=== PATIENT | female | born 1955 | race Caucasian/White ===

== ENCOUNTER 2016-11-18 03:14 | Emergency (ER) | payer OTHER ==
[~2016-11-18] VITALS: Ht 152.4 cm; Wt 55.4 kg
[~2016-11-18 03:14] MED LIST: ADVIL MIGRAINE200 MG PO; BACTRIM,SEPT1 TABLET PO; BACTROBAN OINTM22 GM TP; Bactrim,Septra DS 80 PO; CLONAZEPAM2 MG PO; CONCERTA27 MG PO; ERYTHROMYCIN O3.5 GM LEFT EYE; Flagyl PO; HYDROCHLOROTH12.5 M3 PO; HYDROCHLOROTHIA25 MG PO; HYDROCODON-ACE1 EAC7 PO; HYDROCODONE PO; INDOCIN25 MG PO; KLONOPIN1 M1 PO; LORTAB 5-325 M1 EACH PO; NICODERM CQ1 EAC2 TD; NICOTINE PATCH1 EAC1 TD; NORCO 5/3251 TABLET PO; PERCOCET 5/31 TABLET PO; RITALIN20 MG PO; SOMA250 MG PO; SSD25GM TP; THERAGRAN1 TABLET PO; TOBRAMYCIN SULFA5 ML RIGHT EYE; TRAMADOL HCL50 MG PO; XANAX XR2 MG PO; ZANTAC150 MG PO; ZOLOFT100 MG PO; ZYVOX600 MG PO; Zoloft PO
[2016-11-18] MEDS ORDERED: EPIPEN ADU0.3 MG/0.3 IM (05:02)
[2016-11-18 05:10] VITALS: BP 160/84
== END 2016-11-18 05:15 | disposition home or self-care (01) ==
LOC: EME → EDBD 03:14 → EME 03:14
DX: T78.1XXA Other adverse food reactions, not elsewhere classified, initial encounter (principal)
CPT/HCPCS: 93005; 99281; 99285; J2930; S0028

== ENCOUNTER → 2017-11-06 | Outpatient (CLI) | payer MEDICARE, OTHER ==
[~2017-11-06] MED LIST changes: +EPIPEN ADU0.3 MG/0.3 IM
== END | disposition home or self-care (01) ==
LOC: CDC 13:30
DX: Z01.810 Encounter for preprocedural cardiovascular examination (principal); R39.15 Urgency of urination; R31.29 Other microscopic hematuria; I45.10 Unspecified right bundle-branch block
CPT/HCPCS: 93000

== ENCOUNTER 2018-02-13 21:58 | Inpatient (IN) | payer OTHER ==
[~2018-02-13] VITALS: Ht 154.9 cm; Wt 55.4 kg
[~2018-02-13 21:58] MED LIST changes: -CLONAZEPAM2 MG PO; +KLONOPIN1 MG PO
[2018-02-13 22:26] LABS: HEMATOCRIT 36.1 % (36.0-46.0); HEMOGLOBIN 12.1 G/DL (11.9-15.5); MCHC 33.5 G/DL (30.0-36.0); MCV 89.4 FL (83-99); NRBC (%) 0.3 /100 WBC (0-0); PLATELET COUNT 231 K/uL (156-360); RBC DIS.WIDTH-CV 14.4 % (11.8-14.6); RBC DIS.WIDTH-SD 46.7 % (39-53); RED BLOOD COUNT 4.04 M/uL (3.80-5.20); WHITE BLOOD COUNT 7.3 K/uL (4.1-10.2)
[2018-02-13 22:37] LABS: ALBUMIN 3.7 g/dL (3.2-4.8)
[2018-02-13 22:38] LABS: CHLORIDE 108 mEq/L (99-109); POTASSIUM 3.8 mEq/L (3.7-5.4); SODIUM 142 mEq/L (136-147)
[2018-02-13 22:40] LABS: GLUCOSE 138 mg/dL (70-99); TOTAL PROTEIN 6.3 g/dL (6.4-8.3)
[2018-02-13 22:42] LABS: TOTAL BILIRUBIN 0.3 mg/dL (0.0-1.0)
[2018-02-13 22:43] LABS: SERUM ETHYL ALCOHOL < 10 mg/dL
[2018-02-13 22:44] LABS: ALKALINE PHOSPHATASE 94 IU/L (3-129); CREATININE 1.3 mg/dL (0.6-1.3); GFR ESTIMATE (CALCULATED) 44 mL/min/
[2018-02-13 22:45] LABS: AST (GOT) 57 IU/L (2-34)
[2018-02-13 22:46] LABS: UREA NITROGEN (BUN) 18 mg/dL (9-23)
[2018-02-13 22:47] LABS: ALT (GPT) 59 IU/L (3-49); SALICYLATE < 5.0 MG/DL (15-30); TROP-I INTERPRETATION NEGATIVE; TROPONIN-I 0.03 ng/mL (0.0-0.30)
[2018-02-13 22:48] LABS: ACETAMINOPHEN (TYLENOL) < 10 mcg/mL (10-30); CREATINE KINASE 166 IU/L (1-294); LIPASE 24 U/L (1.0-51.0)
[2018-02-14] VITALS (21 sets, daily range): BP systolic 102–135; BP diastolic 47–74
[2018-02-14 00:57] LABS: APPEARANCE SL.HAZY ((CLEAR)); BILIRUBIN NEGATIVE; BLOOD NEGATIVE; COLOR YELLOW ((YELLOW)); GLUCOSE (STRIP) NEGATIVE; KETONES NEGATIVE; LEUKOCYTES NEGATIVE; NITRITE NEGATIVE; PROTEIN (STRIP) 30; SPECIFIC GRAVITY 1.024 (1.000-1.030); UROBILINOGEN 0.2 MG/DL (0.2-1.0)
[2018-02-14 01:00] LABS: BACTERIA NONE SEEN /HPF; EPITHELIAL CELLS RARE /HPF; HYALINE CASTS 0-5 /LPF; MUCUS TRACE /LPF; RED BLOOD CELLS 0-5 /HPF (0-5); UCUL ADDED? YES
[2018-02-14 01:14] LABS: AMPHETAMINE NEGATIVE (500 ng/mL); BARBITURATES NEGATIVE (200 ng/mL); BENZODIAZEPINES PRESUMPTIVE POSITIVE (150 ng/mL); BUPRENORPHINE NEGATIVE (10 ng/mL); COCAINE NEGATIVE (150 ng/mL); METHADONE NEGATIVE (200 ng/mL); METHAMPHETAMINE NEGATIVE (500 ng/mL); OPIATES (MORPHINE) NEGATIVE (100 ng/mL); OXYCODONE NEGATIVE (100 ng/mL); PHENCYCLIDINE NEGATIVE (25 ng/mL); PROPOXYPHENE NEGATIVE (300 ng/mL); THC CANNABINOIDS PRESUMPTIVE POSITIVE (50 ng/mL); TRICYCLIC ANTIDEPRESSANTS NEGATIVE (300 ng/mL)
[2018-02-14] MEDS ORDERED: NICODERM CQ1 EAC2 TD (01:17)
[2018-02-14] MEDS ORDERED: SINGULAIR10 MG PO (01:18)
[2018-02-14] MEDS ORDERED: LYRICA100 MG PO (01:18)
[2018-02-14] MEDS ORDERED: CHLORZOXAZONE500 MG PO (01:18)
[2018-02-14] MEDS ORDERED: ATORVASTATIN CA10 MG PO (01:18)
[2018-02-14 02:59] LABS: BENZODIAZEPINES, URINE SCREEN POSITIVE (200 ng/mL)
[2018-02-14 05:30] LABS: TROP-I INTERPRETATION POSITIVE
[2018-02-14 05:31] LABS: TROPONIN-I 0.64 ng/mL (0.0-0.30)
[2018-02-14 09:26] LABS: TROP-I INTERPRETATION POSITIVE; TROPONIN-I 0.79 ng/mL (0.0-0.30)
[2018-02-14 20:25] LABS: TROP-I INTERPRETATION INDETERMINATE; TROPONIN-I 0.35 ng/mL (0.0-0.30)
[2018-02-15] VITALS (14 sets, daily range): BP systolic 109–155; BP diastolic 54–84
[2018-02-15 05:36] LABS: HEMATOCRIT 38.6 % (36.0-46.0); HEMOGLOBIN 12.7 G/DL (11.9-15.5); MCH 29.1 PG (29.0-34.0); MCHC 32.9 G/DL (30.0-36.0); MCV 88.3 FL (83-99); PLATELET COUNT 238 K/uL (156-360); RBC DIS.WIDTH-CV 13.9 % (11.8-14.6); RBC DIS.WIDTH-SD 45.1 % (39-53); RED BLOOD COUNT 4.37 M/uL (3.80-5.20); WHITE BLOOD COUNT 9.9 K/uL (4.1-10.2)
[2018-02-15 06:18] LABS: CHLORIDE 108 MEQ/L (99-109); SODIUM 139 MEQ/L (136-147); UREA NITROGEN (BUN) 14 mg/dL (9-23)
[2018-02-15 06:24] LABS: CREATININE 0.8 MG/DL (0.6-1.3); GFR ESTIMATE (CALCULATED) > 59 mL/min/; GLUCOSE 98 mg/dL (70-99); POTASSIUM 4.6 MEQ/L (3.7-5.4)
[2018-02-15 07:10] LABS: TROP-I INTERPRETATION NEGATIVE; TROPONIN-I 0.22 ng/mL (0.0-0.30)
[2018-02-16 03:44] VITALS: BP 104/58
[2018-02-16 08:40] VITALS: BP 132/66
[2018-02-16 12:22] VITALS: BP 146/72
[2018-02-16 16:15] VITALS: BP 123/63
[2018-02-16 19:45] VITALS: BP 122/61
[2018-02-16 23:24] VITALS: BP 132/66
[2018-02-17 03:27] VITALS: BP 123/58
[2018-02-17 08:02] VITALS: BP 144/68
[2018-02-17 12:00] VITALS: BP 131/73
== END 2018-02-17 14:41 | disposition home or self-care (01) | DRG 917 ==
LOC: EME → EDBD 21:58 → EDOF 02-14 01:50 → 4WEST 02-14 01:50 → ENRESERV 02-14 01:51 → 4WEST 02-14 03:03 → ENRESERV 02-15 12:35 → 4EAST 02-15 15:22 → ENRESERV 02-17 01:51 → 5SOUTH 02-17 03:04 → ENPENDDIS 02-17 13:27 → 5SOUTH 02-17 14:41
PROVIDERS: Emergency Medicine; Internal Medicine Critical Care Medicine; Surgery
DX: T40.1X1A Poisoning by heroin, accidental (unintentional), initial encounter (principal); T37.2X Poisoning by, adverse effect of and underdosing of antimalarials and drugs acting on other blood protozoa; I46.8 Cardiac arrest due to other underlying condition; N17.9 Acute kidney failure, unspecified; R00.1 Bradycardia, unspecified; R53.83 Other fatigue; I45.10 Unspecified right bundle-branch block; R74.8 Abnormal levels of other serum enzymes; R74.0 Nonspecific elevation of levels of transaminase and lactic acid dehydrogenase [LDH]; F11.10 Opioid abuse, uncomplicated; F19.10 Other psychoactive substance abuse, uncomplicated; E86.0 Dehydration; I10 Essential (primary) hypertension; R10.9 Unspecified abdominal pain; M79.7 Fibromyalgia; G89.4 Chronic pain syndrome; E78.5 Hyperlipidemia, unspecified; D86.9 Sarcoidosis, unspecified; J44.9 Chronic obstructive pulmonary disease, unspecified; F90.9 Attention-deficit hyperactivity disorder, unspecified type; F31.9 Bipolar disorder, unspecified; F41.9 Anxiety disorder, unspecified; F17.200 Nicotine dependence, unspecified, uncomplicated; Z71.6 Tobacco abuse counseling; Z82.49 Family history of ischemic heart disease and other diseases of the circulatory system
CPT/HCPCS: 71045; 80048; 80053; 81003; 82550; 83690; 84484; 84999; 85027; 87086; 87641; 93005; 93306; 94799; 99281; 99285; G0480; J1644; J1885; J2765; J7030

== ENCOUNTER 2018-02-26 20:49 | Emergency (ER) | payer OTHER ==
[~2018-02-26] VITALS: Ht 154.9 cm; Wt 55.1 kg
[~2018-02-26 20:49] MED LIST changes: +ATORVASTATIN CA10 MG PO; +CHLORZOXAZONE500 MG PO; +LYRICA100 MG PO; +SINGULAIR10 MG PO
[2018-02-26 22:14] LABS: BASOPHIL (%) 0.7 % (0-1); BASOPHIL COUNT 0.1 K/uL (0-0.1); EOSINOPHIL (%) 3.5 % (0-5); EOSINOPHIL COUNT 0.3 K/uL (0-0.3); HEMATOCRIT 34.4 % (36.0-46.0); HEMOGLOBIN 11.8 G/DL (11.9-15.5); IMMATURE GRANULOCYTE (%) 0.2 % (0.0-0.7); LYMPHOCYTE (%) 26.6 % (15-42); LYMPHOCYTE COUNT 2.3 K/uL (1.0-2.8); MCH 29.8 PG (29.0-34.0); MCHC 34.3 G/DL (30.0-36.0); MCV 86.9 FL (83-99); MONOCYTE (%) 7.7 % (3-12); MONOCYTE COUNT 0.7 K/uL (0-0.8); NEUTROPHIL (%) 61.3 % (45-76); NEUTROPHIL COUNT 5.3 K/uL (1.8-6.4); PLATELET COUNT 273 K/uL (156-360); RBC DIS.WIDTH-CV 13.7 % (11.8-14.6); RBC DIS.WIDTH-SD 43.2 % (39-53); RED BLOOD COUNT 3.96 M/uL (3.80-5.20); WHITE BLOOD COUNT 8.6 K/uL (4.1-10.2)
[2018-02-26 22:27] LABS: CHLORIDE 111 mEq/L (99-109); POTASSIUM 3.4 mEq/L (3.7-5.4); SODIUM 143 mEq/L (136-147)
[2018-02-26 22:29] LABS: GLUCOSE 87 mg/dL (70-99)
[2018-02-26 22:33] LABS: CREATININE 0.8 mg/dL (0.6-1.3); GFR ESTIMATE (CALCULATED) > 59 mL/min/; UREA NITROGEN (BUN) 11 mg/dL (9-23)
[2018-02-26 22:35] LABS: TROP-I INTERPRETATION NEGATIVE; TROPONIN-I < 0.01 ng/mL (0.0-0.30)
[2018-02-26 23:58] VITALS: BP 172/86
== END 2018-02-26 23:59 | disposition home or self-care (01) ==
LOC: EME 20:49
PROVIDERS: Emergency Medicine
DX: R06.00 Dyspnea, unspecified (principal); R07.89 Other chest pain; D86.9 Sarcoidosis, unspecified; K21.9 Gastro-esophageal reflux disease without esophagitis; I10 Essential (primary) hypertension; M79.7 Fibromyalgia; R56.9 Unspecified convulsions; F32.9 Major depressive disorder, single episode, unspecified; F41.9 Anxiety disorder, unspecified; F17.200 Nicotine dependence, unspecified, uncomplicated; Z90.710 Acquired absence of both cervix and uterus; Z88.1 Allergy status to other antibiotic agents; Z88.8 Allergy status to other drugs, medicaments and biological substances
CPT/HCPCS: 71250; 80048; 84484; 85025; 93005; 99281; 99284

== ENCOUNTER → 2018-03-24 | Outpatient (CLI) | payer OTHER | END | disposition home or self-care (01) | LOC: NUC 10:30 | DX: Z86.74 Personal history of sudden cardiac arrest (principal); R94.31 Abnormal electrocardiogram [ECG] [EKG]; I25.10 Atherosclerotic heart disease of native coronary artery without angina pectoris; R77.8 Other specified abnormalities of plasma proteins; Z82.49 Family history of ischemic heart disease and other diseases of the circulatory system | CPT/HCPCS: 78452; 93017; A9500; J2785 ==